=== PATIENT | male | born 2000 | race Caucasian/White ===

== ENCOUNTER 2019-01-14 10:43 | Emergency (ER) | payer SELFPAY ==
[~2019-01-14] VITALS: Ht 182.9 cm; Wt 70.0 kg
[2019-01-14 11:04] VITALS: BP 153/88
--- NOTE | 2019-01-14 11:45 | NUR ---
CORONER/MEDICAL EXAMINER: PT AMBULATORY TO CT IN NAD AT THIS TIME, TO RETURN TO ON LICENSE OF [facility] UPON COMPLETION OF SCAN
[2019-01-14] MEDS ORDERED: KETOROLAC 30 MG/1 ML ONE (12:17)
[2019-01-14] MEDS ORDERED: METHOCARBAMOL 750 MG TABLET ONE (12:17)
[2019-01-14] MEDS ORDERED: METHOCARBAMOL 750 MG TABLET PO ONE (12:30)
[2019-01-14] MEDS ORDERED: KETOROLAC 30 MG/1 ML IM ONE (12:30)
== END 2019-01-14 12:36 | disposition home or self-care (01) ==
LOC: ED 12:30
DX: S06.0X0A Concussion without loss of consciousness, initial encounter (principal); X36.1XXA Avalanche, landslide, or mudslide, initial encounter; Y93.89 Activity, other specified; Y92.828 Other wilderness area as the place of occurrence of the external cause; Y99.8 Other external cause status
CPT/HCPCS: 70450; 96372; 99284; J1885